=== PATIENT | female | born 1985 | race Caucasian/White ===

== ENCOUNTER 2018-03-30 18:19 | Emergency (ER) | payer OTHER ==
[2018-03-30 18:29] VITALS: BP 125/88; PULSE 91; RESP 18; TEMP 99.6; O2SAT 100
--- NOTE | 2018-03-30 19:59 | ED PDOC ---
HPI: Dental Pain/Injury Time Seen by Provider: 03/30/18 18:30 Chief Complaint (Nursing): Dental Pain Chief Complaint (Provider): Toothache Quality: "Pain" Additional Complaint(s): 32 year old female presents to the ED for an evaluation of tooth pain. Reports for the past 4-5 days she has left lower toothache. She took metronidazole at home. Denies headache, numbness, tingling or sore throat. PMD: No Family Provider Past Medical History Reviewed: Historical Data, Nursing Documentation, Vital Signs Vital Signs: Last Vital Signs Temp 99.6 F 03/30/18 18:27 Pulse 91 H 03/30/18 18:27 Resp 18 03/30/18 18:27 BP 125/88 03/30/18 18:27 Pulse Ox 100 03/30/18 18:27 - Medical History PMH: No Chronic Diseases - Surgical History Surgical History: No Surg Hx - Family History Family History: States: Unknown Family Hx - Social History Current smoker - smoking cessation education provided: No Alcohol: None Drugs: Denies - Home Medications Home Medications: Ambulatory Orders Medication Instructions Recorded Amoxicillin [Amoxil 500 mg Cap] 500 mg PO BID #20 cap 03/30/18 Naproxen [Naprosyn] 500 mg PO BID PRN #10 tab 03/30/18 - Allergies Allergies/Adverse Reactions: Allergies Allergy/AdvReac Type Severity Reaction Status Date / Time No Known Allergies Allergy Verified 03/30/18 18:26 Review of Systems ROS Statement: Except As Marked, All Systems Reviewed And Found Negative ENT: Positive for: Mouth Pain (left lower toothpain). Negative for: Throat Pain Neurological: Negative for: Headache Physical Exam - Reviewed Nursing Documentation Reviewed: Yes Vital Signs Reviewed: Yes - Physical Exam Appears: Positive for: Well, Non-toxic, No Acute Distress Head Exam: Positive for: ATRAUMATIC, NORMAL INSPECTION, NORMOCEPHALIC Skin: Positive for: Normal Color, Warm, Dry Eye Exam: Positive for: Normal appearance ENT: Positive for: Other (dentition intact, no trismus). Negative for: Normal ENT Inspection (left mandibular molar tooth with minimal gingival swelling) Neurologic/Psych: Positive for: Alert, Oriented (x3) - ECG O2 Sat by Pulse Oximetry: 100 (RA) Pulse Ox Interpretation: Normal Medical Decision Making Medical Decision Making: Time: 1833 Initial Impression: toothache Initial Plan: --ED Urine --Toradol 30mg IM Clinical Impression: toothache Upon provider evaluation patient is medically stable, and requires no further treatment in the ED at this time. Patient will be discharged with Amoxil 500mg and Naprosyn 500mg for pain. Counseling was provided and all questions were answered regarding diagnosis and follow-up with dentist. There is agreement to discharge plan. Return if symptoms persist or worsen. Scribe Attestation: Documented by Vish Foster, acting as a scribe for Eriberto Romero PA-C. Provider Scribe Attestation: All medical record entries made by the Scribe were at my direction and personally dictated by me. I have reviewed the chart and agree that the record accurately reflects my personal performance of the history, physical exam, medical decision making, and the department course for this patient. I have also personally directed, reviewed, and agree with the discharge instructions and disposition. Disposition - Clinical Impression Clinical Impression: Toothache - Patient ED Disposition Is Patient to be Admitted: No - Disposition Referrals: [facility]derr[facility] [place] [Outside] Disposition: Routine/Home Disposition Time: 19:00 Condition: STABLE Additional Instructions: BREANNE AVALOS, thank you for letting us take care of you today. Your provider was Lluvia Franco MD and you were treated for POSS TOOTHACHE. The emergency medical care you received today was directed at your acute symptoms. If you were prescribed any medication, please fill it and take as directed. It may take several days for your symptoms to resolve. Return to the Emergency Department if your symptoms worsen, do not improve, or if you have any other problems. Please contact your doctor or call one of the physicians/clinics you have been referred to that are listed on the Patient Visit Information form that is included in your discharge packet. Bring any paperwork you were given at discharge with you along with any medications you are taking to your follow up visit. Our treatment cannot replace ongoing medical care by a primary care provider outside of the emergency department. Thank you for allowing the [facility] team to be part of your care today. If you had an X-Ray or CT scan: A Radiologist will review the ED reading if any change in treatment is needed we will contact you. If you had a blood, urine, or wound culture: It will take several days for the results, if any change in treatment is needed we will contact you. If you had an STI test: It will take 48 hours for the results. Please call after 1 week if you have not heard back. Prescriptions: Amoxicillin [Amoxil 500 mg Cap] 500 mg PO BID #20 cap Naproxen [Naprosyn] 500 mg PO BID PRN #10 tab PRN Reason: Pain Instructions: Dental Pain (DC) Forms: [employer] (Tuvaluan) Print Language: RUSSIAN
== END 2018-03-30 19:13 | disposition home or self-care (01) ==
LOC: H.ER 18:19
DX: K08.89 Other specified disorders of teeth and supporting structures (principal)
CPT/HCPCS: 81025; 96372; 99281; J1885